=== PATIENT | female | born 1985 | race African-American/Black ===

== ENCOUNTER 2017-01-12 06:21 | Inpatient (IN) ==
--- NOTE | 2017-01-12 07:28 | History and Physical Update ---
History and Physical Update - History and Physical H&P was reviewed, the patient examined and there: are no changes in the patients condition since last H&P was completed. - Dictation Physical: refer to scanned H&P - Physical Exam Mental Status: alert and oriented Heart: regular rate and rhythm Lung: clear to auscultation Abdomen: within normal limits Vitals: within normal limits History and Physical Changes: 39 wks for induction.
[2017-01-12] MEDS: LACTATED RINGERS 1,000 ML IV SCH ×2 (07:30→09:56)
[2017-01-12 07:54] LABS: Eosinophils # 0.1 10*3/uL (0.0-0.87); Eosinophils % 0.6 % (0.00-10.9); Hematocrit 30.7 VOL% (35.7-47.0); Hemoglobin 9.8 GM/DL (12.0-16.0); Immature Granulocytes Absolute 0.08 #; Lymphocytes % 24.5 % (21.3-54.2); Mean Corpuscular HGB Conc 31.9 GM/DL (32-36); Mean Corpuscular Hemoglobin 29 PG (27-34); Mean Platelet Volume 9.6 FL (9.6-12.0); Monocytes # 1.3 10*3/uL (0.11-0.8); Monocytes % 16.4 % (1.7-12.7); Neutrophils # 4.7 10*3/uL (1.4-7.4); Neutrophils % 57.5 % (38.7-73.9); Platelet Count 294 T/CUMM (130-400); Red Blood Count 3.41 MC/CUMM (3.8-5.5); Red Cell Distribution Width 16.7 % (9.3-17.3); White Blood Count 8.2 T/CUMM (4-12)
[2017-01-12 08:19] LABS: Band Neutrophils 1 % (0-10); Hypochromasia Slight; Lymphocytes 24 % (20-55); Polychromasia Slight; Segmented Neutrophils 60 % (50-85); Total Cells Counted 100
[2017-01-12 08:20] LABS: Platelet Estimate Adequate
[2017-01-12] MEDS: MEPERIDINE 50 MG/1 ML VIAL IV PRN ×2 (20:38→23:28)
[2017-01-12] MEDS: ONDANSETRON 4 MG/2 ML VIAL IV PRN (20:38)
[2017-01-12] MEDS ORDERED: ZALEPLON 5 MG CAPSULE PO ONE (22:28)
[2017-01-13] MEDS: LACTATED RINGERS 1,000 ML IV SCH ×3 (00:52→21:45)
[2017-01-13] MEDS: MEPERIDINE 50 MG/1 ML VIAL IV PRN ×4 (02:38→23:41)
[2017-01-13] MEDS: ONDANSETRON 4 MG/2 ML VIAL IV PRN ×2 (02:38→09:20)
[2017-01-13] MEDS: OXYTOCIN/LR 20 UNIT/1,000 ML BAG IV SCH (09:18)
[2017-01-13] MEDS ORDERED: fentaNYL 2 MCG/ROPIV 0.2% EPID 150 ML EPIDURAL SCH (11:23)
[2017-01-13] MEDS ORDERED: ONDANSETRON 4 MG/2 ML VIAL IV ONE (11:23)
[2017-01-13] MEDS ORDERED: diphenhydrAMINE 50 MG/1 ML VIAL IV PRN ×2 (11:23)
[2017-01-13] MEDS ORDERED: CITRIC ACID/SODIUM CITRATE 30 ML UDCUP PO ONE (11:23)
[2017-01-13] MEDS ORDERED: LACTATED RINGERS 1,000 ML IV ONE (11:23)
[2017-01-13] MEDS ORDERED: hydrOXYzine HCL 25 MG/1 ML VIAL IM PRN (11:23)
[2017-01-13] MEDS ORDERED: PROMETHAZINE 25 MG/1 ML VIAL IM ONE ×2 (11:23→19:10)
[2017-01-13] MEDS ORDERED: FAMOTIDINE 20 MG/2 ML VIAL IV ONE (11:23)
[2017-01-13] MEDS ORDERED: ePHEDrine 50 MG/ML AMP IV PRN (11:23)
[2017-01-13] MEDS ORDERED: CITRIC ACID/SODIUM CITRATE 30 ML UDCUP ONE (11:37)
[2017-01-13] MEDS ORDERED: fentaNYL 2 MCG/ROPIV 0.2% EPID 150 ML EPIDURAL ONE (11:37)
[2017-01-13] MEDS ORDERED: METHYLERGONOVINE 0.2 MG/1 ML AMP ONE (13:50)
[2017-01-13 13:51] LABS: Cord Arterial Blood HCO3 16.8 MMOL/L
[2017-01-13] MEDS ORDERED: METHYLERGONOVINE 0.2 MG/1 ML AMP IM ONE (13:53)
[2017-01-13] MEDS ORDERED: miSOPROStol 200 MCG TABLET RECTAL ONE (13:55)
--- NOTE | 2017-01-13 13:59 | EKG Report ---
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
[2017-01-13] MEDS ORDERED: CARBOPROST TROMETHAMINE 250 MCG/ML AMP IM ONE ×2 (14:01→14:04)
[2017-01-13] MEDS ORDERED: CALCIUM CHLORIDE 1,000 MG/10 ML VIAL IV ONE (14:27)
[2017-01-13] MEDS ORDERED: ONDANSETRON 4 MG/2 ML VIAL ONE ×2 (14:27→18:50)
[2017-01-13] MEDS ORDERED: PHENYLEPHRINE 1 MG/10 ML SYRINGE IV ONE (14:27)
[2017-01-13 15:05] LABS: Hematocrit 19.7 VOL% (35.7-47.0); Platelet Count 157 T/CUMM (130-400)
[2017-01-13 15:07] LABS: Hemoglobin 6.4 GM/DL (12.0-16.0)
[2017-01-13 15:26] LABS: ABG Base Excess -6.1 MMOL/L (-2.5-2.5); ABG HCO3 18.2 MMOL/L (20-26); ABG Oxygen Saturation 99.3 % (95-100); ABG PCO2 30.4 MM HG (35-48); ABG PH 7.395 (7.35-7.45); ABG PO2 283.2 MM HG (80-95); ABG TCO2 19.1 MMOL/L (23-27)
[2017-01-13] MEDS ORDERED: SODIUM CHLORIDE 0.9% 250 ML IV PRN (15:47)
[2017-01-13] MEDS ORDERED: GLYCOPYRROLATE 0.4 MG/2 ML VIAL ONE (16:00)
[2017-01-13] MEDS ORDERED: ETOMIDATE 20 MG/10 ML VIAL IV ONE (16:00)
[2017-01-13] MEDS ORDERED: NEOSTIGMINE 10 MG/10 ML VIAL ONE (16:00)
[2017-01-13] MEDS ORDERED: LIDOCAINE 2% 5 ML VIAL ONE (16:00)
[2017-01-13] MEDS ORDERED: CALCIUM GLUCONATE 1,000 MG in SODIUM CHLORIDE 0.9% 100 ML IV ONE (16:00)
[2017-01-13] MEDS ORDERED: SUCCINYLCHOLINE 200 MG/10 ML VIAL ONE (16:00)
[2017-01-13] MEDS ORDERED: ROCURONIUM 100 MG/10 ML VIAL IV ONE (16:00)
[2017-01-13] MEDS ORDERED: CALCIUM GLUCONATE 1,000 MG/10 ML VIAL IV ONE (16:01)
[2017-01-13 16:38] LABS: PT Patient Result 77.8 SECS; Partial Thromboplastin Time 83.5 SECS (0-40)
[2017-01-13 16:39] LABS: D-Dimer >= 35.2 MG/L FEU; Fibrinogen Quant Value < 50 MG% (200-400); INR 6.5
[2017-01-13 17:45] LABS: Hematocrit 26.9 VOL% (35.7-47.0); Hemoglobin 9.2 GM/DL (12.0-16.0)
[2017-01-13] MEDS ORDERED: ONDANSETRON 4 MG/2 ML VIAL IV PRN (18:43)
[2017-01-13] MEDS ORDERED: MEASLES/MUMPS/RUBELLA VACCINE 0.5 ML VIAL SUBCUT ONE (18:43)
[2017-01-13] MEDS ORDERED: ACETAMINOPHEN 325 MG TABLET PO PRN (18:43)
[2017-01-13] MEDS ORDERED: BISACODYL 10 MG SUPP RECTAL PRN (18:43)
[2017-01-13] MEDS ORDERED: BENZOCAINE 20%/MENTHOL 0.5% SPRAY 56 GM CAN TOP PRN (18:43)
[2017-01-13] MEDS ORDERED: HYDROCORTISONE 2.5% RECTAL CREAM 30 GM TUBE TOP PRN (18:43)
[2017-01-13] MEDS ORDERED: oxyCODONE/ACETAMINOPHEN 5-325 MG TABLET PO PRN (18:43)
[2017-01-13] MEDS ORDERED: LANOLIN 50% CREAM 0.3 OZ TUBE TOP PRN (18:43)
[2017-01-13] MEDS ORDERED: WITCH HAZEL PADS 100/JAR TOP PRN (18:43)
[2017-01-13] MEDS ORDERED: IBUPROFEN 400 MG TABLET PO PRN (18:43)
[2017-01-13] MEDS ORDERED: RHO(D) IMMUNE GLOBULIN 300 MCG SYRINGE IM ONE (18:43)
[2017-01-13] MEDS ORDERED: DIPH/TET/ACEL PERT BOOSTER VACCINE 0.5 ML VIAL IM ONE (18:43)
--- NOTE | 2017-01-13 18:54 | Operative Note ---
Date of procedure: 01/13/17 Pre-op diagnosis: 1.s/p ;2.poss AF embolism at delivery;3. uterine bleed Post-op diagnosis: same (+ 4. DIC) Procedure: Examination in OR with uterine currettage and placement of intrauterine baloon tamponade. US at conclusion of placement to assure no collection of blood above baloon. Baloon tamponade placed to gravity drainage with traction applied to catheter to maintain pressure on lower uterine segment. Transfusion of 3 units of pRBCs during the case with suspected 1200 cc blood loss from time of delivery until OR evaluation. Transfer to ICU at conclusion of case Anesthesia: epidural Surgeon / Physician: Elaine Norris Condition: other (guarded) Disposition: ICU Results - Labs CBC & BMP: 01/13/17 17:41 Discharge Plan - Discharge Medications No Action Vit 108/Iron/Folic AC [ One Tablet] 1 tablet PO DAILY Ferrous Sulfate Tab [Feosol Original Tab] 325 mg PO BID - Follow Up or Referral - Forms/Instructions
--- NOTE | 2017-01-13 18:57 | XRay Report ---
XR chest 1V portable Indication: Central line placement. Chest one view: No comparison. Right IJ central line is present, tip at the RA-SVC junction. No pneumothorax seen. Heart size is normal. Mild bibasilar atelectasis noted. Impression: Uncomplicated right IJ central line. Bibasilar atelectasis. PROCEDURE INTERPRETED AT [facility] DEPARTMENT OF RADIOLOGY Final Report Signed by: Salvador Pang M.D.
--- NOTE | 2017-01-13 19:03 | Operative Note ---
Date of procedure: 01/13/17 Pre-op diagnosis: Persistent uterine bleeding despite placement of uterine tamponade Post-op diagnosis: same Procedure: Total abdominal hysterectomy, bilateral salpingectomy Midline vertical incision Gelfoam to space between bladder and anterior vagina Fascia closed with loop PDS [place] to skin Anesthesia: KHADRA Surgeon / Physician: Elaine Norris Estimated blood loss: other (200 cc with this procedure; 2000 cc estimated since delivery) Specimens: other (uterus, cervix, bilateral tubes) Condition: other (guarded) Disposition: ICU Results - Labs CBC & BMP: 01/13/17 17:41 Discharge Plan - Discharge Medications No Action Vit 108/Iron/Folic AC [ One Tablet] 1 tablet PO DAILY Ferrous Sulfate Tab [Feosol Original Tab] 325 mg PO BID - Follow Up or Referral - Forms/Instructions
[2017-01-13] MEDS ORDERED: LACTATED RINGERS 250 ML IV PRN (19:10)
[2017-01-13] MEDS: fentaNYL 2 MCG/ROPIV 0.2% EPID 150 ML EPIDURAL SCH (19:37)
[2017-01-13 21:13] LABS: Basophils % 0.1 % (0.0-0.8); Hematocrit 32.3 VOL% (35.7-47.0); Immature Granulocytes % 0.7 %; Lymphocytes # 1.9 10*3/uL (1.4-4.0); Lymphocytes % 12.1 % (21.3-54.2); Mean Corpuscular HGB Conc 34.1 GM/DL (32-36); Mean Corpuscular Hemoglobin 30 PG (27-34); Mean Corpuscular Volume 88.3 FL (87-102); Mean Platelet Volume 9.8 FL (9.6-12.0); Monocytes # 2.5 10*3/uL (0.11-0.8); Monocytes % 16.2 % (1.7-12.7); NRBC # 0.43 10*3/uL; Neutrophils # 10.8 10*3/uL (1.4-7.4); Neutrophils % 70.9 % (38.7-73.9); Platelet Count 93 T/CUMM (130-400); Red Blood Count 3.66 MC/CUMM (3.8-5.5); Red Cell Distribution Width 16.1 % (9.3-17.3); White Blood Count 15.3 T/CUMM (4-12)
[2017-01-13 21:41] LABS: Albumin 1.8 G/DL (3.4-5.0); Bilirubin,Total 2.1 MG/DL (0.2-1.0); Total Protein 3.7 G/DL (6.4-8.3)
[2017-01-13 21:42] LABS: Osmolality,Calculated 288.6 MOS/KG (273-304); Potassium 3.8 MMOL/L (3.5-5.1)
--- NOTE | 2017-01-13 21:49 | Operative Note ---
Date of procedure: 01/13/17 Pre-op diagnosis: 39 weeks for cytotec induction Post-op diagnosis: same (+ 2. Immediate seizure; 3. uterine atony; 4. Suspected amniotic fluid embolism; 5. Suspected DIC) Procedure: Vacuum assisted ; Immediate seizure; Code was called due to pt's non-responsiveness; uterine atony; Suspected amniotic fluid embolism (upon reflection on the events later); Suspected DIC (upon reflection on the events later) Patient progressed to complete and pushing with labor epidural and Pitocin augmentation and delivered a viable male over intact perineum via Kiwi vacuum assistance due to prolonged bradycardia and ineffective pushing with labor epidural. Kiwi was applied to vertex at +3 station and baby delivered very easily with only 1 light pull of vacuum. Nuchal cord x 2 was easily reduced. Baby was bulb suctioned on the perineum. Cord was doubly clamped and cut. was taken immediately to warmer for stimulation. When I returned to the patient she was having a seizure. We immediately began supportive therapy. O2 was in place. We had difficulty assessing patient's cardiac activity initially as the patient's ECG electrodes had been removed in anticipation for [id number]. Code was called due to patient's non- responsiveness and minimal respiratory activity once seizure activity stopped. Code team along with Dr. Barron and Dr. Harris from the ER, and Dr. Candelario from Hospital Medicine were in the room within 2 minutes. Please see code team write up for events. Pt was being prepared to be moved to ICU for close observation and further evaluation. Once patient was awake and apparently stable we put her back in [facility]. Placenta was delivered intact at 1342. No vaginal or perineal lacerations were noted. Fundus is firm, however pt continued to have more bleeding than was expected despite Pitocin, rectal Cytotec, Methergine and Hemabate. Manual exploration of the uterus revealed no palpable retained products. Attempt to examine the cervix for lacerations and to perform Banjo currettage was without success due to positioning of the patient and inadequate visualization. We placed a Mccloud catheter steriley and atraumatically at 1352 and red urine was noted coming into Mccloud tubing and bag . Estimated blood loss at this point was suspected to be 800 mL. Surgery and anesthesia were notified that we wished to proceed with D&C and possible intrauterine baloon tamponade placement. All these events were discussed with the patient's SO and his aunt. The SO signed consent for surgery and the patient was moved to the OR. Type and cross for pRBCs was ordered. Anesthesia: epidural Surgeon / Physician: Elaine Norris Estimated blood loss: other (~800cc) Specimens: other (placenta to path; cord blood to lab) Condition: critical Disposition: other (surgery) Results - Labs CBC & BMP: 01/13/17 20:55 Discharge Plan - Discharge Medications No Action Vit 108/Iron/Folic AC [ One Tablet] 1 tablet PO DAILY Ferrous Sulfate Tab [Feosol Original Tab] 325 mg PO BID - Follow Up or Referral - Forms/Instructions
[2017-01-13] MEDS: DOCUSATE SODIUM 100 MG CAPSULE PO SCH (21:50)
[2017-01-13 21:51] LABS: Lactic Acid 2.7 MMOL/L (0.4-2.0)
[2017-01-13 23:08] LABS: Band Neutrophils 6 % (0-10); Lymphocytes 26 % (20-55); Metamyelocytes 1 %; Nucleated Red Blood Cells 4 (0-5); Platelet Estimate Decreased; Polychromasia Few; Segmented Neutrophils 65 % (50-85); Total Cells Counted 100
[2017-01-13] MEDS: cefOXitin 1,000 MG in SODIUM CHLORIDE 0.9% 100 ML IV SCH (23:45)
[2017-01-14] MEDS: MEPERIDINE 25 MG/1 ML VIAL IV PRN ×3 (04:00→16:11)
[2017-01-14 04:30] LABS: Basophils % 0.1 % (0.0-0.8); Hematocrit 26.6 VOL% (35.7-47.0); Hemoglobin 9.1 GM/DL (12.0-16.0); Immature Granulocytes % 0.3 %; Immature Granulocytes Absolute 0.05 #; Lymphocytes % 12.8 % (21.3-54.2); Mean Corpuscular HGB Conc 34.2 GM/DL (32-36); Mean Corpuscular Hemoglobin 30 PG (27-34); Mean Corpuscular Volume 86.4 FL (87-102); Mean Platelet Volume 9.9 FL (9.6-12.0); Monocytes # 2.4 10*3/uL (0.11-0.8); Monocytes % 15.5 % (1.7-12.7); NRBC # 0.17 10*3/uL; Neutrophils # 11.1 10*3/uL (1.4-7.4); Neutrophils % 71.3 % (38.7-73.9); Red Blood Count 3.08 MC/CUMM (3.8-5.5); Red Cell Distribution Width 16.1 % (9.3-17.3); White Blood Count 15.5 T/CUMM (4-12)
[2017-01-14 04:31] LABS: Platelet Count 81 T/CUMM (130-400)
[2017-01-14 04:43] LABS: INR 1.2; PT Patient Result 12.7 SECS; Partial Thromboplastin Time 33.3 SECS (0-40)
[2017-01-14 04:51] LABS: D-Dimer 34.7 MG/L FEU
[2017-01-14 05:01] LABS: Albumin 1.6 G/DL (3.4-5.0); Bilirubin,Total 1.2 MG/DL (0.2-1.0); Calcium 7.7 MG/DL (8.5-10.1); Osmolality,Calculated 286.7 MOS/KG (273-304); Potassium 3.6 MMOL/L (3.5-5.1); Total Protein 3.4 G/DL (6.4-8.3)
[2017-01-14 05:16] LABS: Band Neutrophils 4 % (0-10); Burr Cells Slight; Hypochromasia 1+; Lymphocytes 16 % (20-55); Nucleated Red Blood Cells 3 (0-5); Platelet Estimate Decreased; Segmented Neutrophils 72 % (50-85); Total Cells Counted 100
[2017-01-14 05:17] LABS: Ovalocytes Slight; Polychromasia Slight
[2017-01-14] MEDS: LACTATED RINGERS 1,000 ML IV SCH ×5 (06:25→15:07)
[2017-01-14] MEDS ORDERED: SODIUM CHLORIDE 0.9% 250 ML IV PRN (07:29)
[2017-01-14] MEDS: OXYTOCIN/LR 20 UNIT/1,000 ML BAG IV SCH ×2 (08:11→08:21)
[2017-01-14] MEDS: DOCUSATE SODIUM 100 MG CAPSULE PO SCH ×3 (08:38→21:22)
[2017-01-14] MEDS: cefOXitin 1,000 MG in SODIUM CHLORIDE 0.9% 100 ML IV SCH ×2 (08:38→16:23)
[2017-01-14] MEDS ORDERED: POTASSIUM CHLORIDE 20 MEQ TABLET PO ONE (09:22)
[2017-01-14] MEDS ORDERED: PHENOL 1.4% THROAT SPRAY 177 ML BOTTLE PO PRN (10:06)
--- NOTE | 2017-01-14 10:07 | Hospitalist Consult Note ---
Addendum entered and electronically signed by Fernanda Tony MD 01/14/17 09:39: The patient received 7 units of packed red blood cells, 2 units of FFP, 2 units of platelets. Original Note: Assessment and Plan - Time spent with patient Time spent with patient: Greater than 30 minutes (1) Hemorrhagic shock Status: Acute Assessment and plan: This is improved with volume replacement with packed red blood cells, blood products and lactated Ringer's. The patient's definitive therapy was hysterectomy. Current Visit: Yes (2) Status post hysterectomy Status: Acute Assessment and plan: This was done on an emergent basis due to her significant uterine bleeding status post . Current Visit: Yes (3) Status post vaginal delivery Status: Acute Current Visit: Yes (4) DIC (disseminated intravascular coagulation) Status: Acute Assessment and plan: Coagulation studies have improved. Continue to monitor for bleeding. No oozing noted from IV sites. Current Visit: Yes (5) Volume overload Status: Acute Assessment and plan: The patient received several units of blood, blood products, and IV fluids. She is now edematous. I plan to give her some albumin and Lasix to help with diuresis. Current Visit: Yes History of Present Illness - Data of Consult Patient: new to practice Consult date: 01/13/17 Requesting Physician: Elaine Norris - Consult Narrative Reason for consult: hypovolemic shock History of present illness: Ms. Finley is a 31 year old female that is s/p . She had significant blood loss and coded in the L&D room. She had a witnessed seizure but regained consciousness. She did not require intubation or chest compressions. She was tachycardic and hypotensive and continued to have uterine bleeding despite Pitocin. She was taken to the operating room for D&C. I was consulted upon arrival to the intensive care unit where she was found to be anemic, and had a suspected coagulopathy, DIC and was going into hypovolemic shock. The patient was quickly taken to surgery for definitive operative procedure with hysterectomy by her coffee attendant and electric power superintendent. I saw her briefly yesterday throughout the course of this episode in the intensive care unit but a formal consultation was not done due to the inability to properly examine the patient. I am seeing her again this morning. Postoperatively, she has improved dramatically. Her coagulation studies have improved. She remains tachycardic but not hypotensive. She is not receiving any IV pressors. She has a triple-lumen catheter in her neck and an arterial line in her right wrist. She is alert awake and oriented. She does not remember much of the events from yesterday. Operative notes have been reviewed as well as labs. Ms. Finley denies any previous medical history. CC: Elaine Norris, DO - Home Medications and Allergies Home Medications: Home Medications Medication Instructions Recorded Confirmed Type Ferrous Sulfate Tab [Feosol 325 mg PO BID 10/18/16 01/12/17 History Original Tab] Vit 108/Iron/Folic AC 1 tablet PO DAILY 01/01/17 01/12/17 History [ One Tablet] Allergies/Adverse Reactions: Allergies Allergy/AdvReac Type Severity Reaction Status Date / Time No Known Allergies Allergy Verified 01/01/17 11:27 Medical,Surgical,& Family Hx - Medical History Neurology: History of: Migraine No history of: Seizures HEENT: History of: Eye Problem (GLASSES) Hematology: History of: Anemia Reproductive: History of: Abnormal Pap Smear, Ovarian Cysts, Complication (MISCARRIAGE) - Surgical History Reproductive Surgeries: Surgical HX of;: Dilation and Curettage (X1), Hysterectomy - Family History Family History: Reports;: Family Cancer (GRANDMOTHERS), Family Diabetes ( MATERNAL GRANDMOTHER), Family Heart Disease (FATHER) - Social History Smoking Status: Never smoker Frequency of Alcohol Use: None Type of Drug Use: None Functional capacity: independent ambulation 12 point system: reviewed and no additional remarkable complaints except as stated Exam - Constitutional Vitals: Period Temp Pulse Resp BP Sys/Hernandez Pulse Ox Last 24 Hr 96.6 F-99.4 F 111-161 12-28 70-135/41-82 94-100 Exam: Constitutional System: Mild distress. No tremulousness. Head: Normocephalic, atraumatic. Ears, Nose and Throat System: No pain or tenderness. No epistaxis or discharge Eyes System: Pupils equal, round, and reactive. Extraocular muscles intact. Neck: Supple, without adenopathy, No jugular venous distention. Respiratory System: Chest clear to auscultation. Cardiovascular System: Heart with regular rate and rhythm. No murmur. GI System: Abdomen soft. Normo active bowel sounds present. Postop changes noted with appropriate tenderness around the surgical site Musculoskeletal System: limbs with bilateral pedal edema. Full distal pulses. Neurological System: No discernable sensory deficit. No aphasia Psychiatric System: Conversation is rational Results - Labs CBC & BMP: 01/14/17 04:15 01/14/17 04:15 Lab Results: I have reviewed the past 24 hour labs Quality Measures - VTE Contraindication to Pharmacological VTE Prophylaxis: Coagulopathy
[2017-01-14] MEDS: FUROSEMIDE 40 MG/4 ML VIAL IV SCH (11:13)
[2017-01-14] MEDS: ALBUMIN 25% 25 GM in PREMIX 1 EACH IV SCH ×2 (11:17→11:29)
[2017-01-14] MEDS ORDERED: LORazepam 2 MG/1 ML VIAL IV ONE (11:48)
[2017-01-14] MEDS ORDERED: MAGNESIUM SULF RIDER 2 GM in PREMIX 1 EACH IV ONE (14:00)
[2017-01-14] MEDS ORDERED: CALCIUM GLUCONATE 2,000 MG in SODIUM CHLORIDE 0.9% 100 ML IV ONE (14:30)
[2017-01-14] MEDS ORDERED: FUROSEMIDE 40 MG/4 ML VIAL IV ONE (17:21)
[2017-01-14] MEDS: ONDANSETRON 4 MG/2 ML VIAL IV PRN (18:28)
[2017-01-14 18:43] LABS: Basophils % 0.1 % (0.0-0.8); Eosinophils % 0.1 % (0.00-10.9); Hemoglobin 11.2 GM/DL (12.0-16.0); Immature Granulocytes % 0.3 %; Lymphocytes # 1.4 10*3/uL (1.4-4.0); Lymphocytes % 9.6 % (21.3-54.2); Mean Corpuscular Hemoglobin 30 PG (27-34); Mean Platelet Volume 10.9 FL (9.6-12.0); Monocytes # 2.1 10*3/uL (0.11-0.8); Monocytes % 14.4 % (1.7-12.7); Neutrophils # 10.9 10*3/uL (1.4-7.4); Neutrophils % 75.5 % (38.7-73.9); Platelet Count 125 T/CUMM (130-400); Red Blood Count 3.72 MC/CUMM (3.8-5.5); Red Cell Distribution Width 15.4 % (9.3-17.3); White Blood Count 14.5 T/CUMM (4-12)
[2017-01-14 18:44] LABS: Immature Granulocytes Absolute 0.05 #; NRBC # 0.06 10*3/uL
--- NOTE | 2017-01-14 18:49 | ECHO Report ---
TusharCamelia Exam Date: 01/14/2017 08:47 Referring Physician: Technologist: denny Issa ARDMS, RVT Age: 31 Ht (in): 62 Wt (lb): 162 Gender: F Exam Location: [facility], [place] Echo Indications: Atrial fibrillation, Post partem uterine bleeding BP: 102 / 65 HR: 118 Rhythm: Atrial fibrillation Technical Quality: average IMPRESSIONS The patient is in sinus rhythm Preserved ejection fraction of 65Tricuspid regurgitation velocities suggest a RVSP of 36 mmHg plus the right atrial pressure.% or greater with grade 1 diastolic dysfunction and no regional wall motion abnormality. MEASUREMENTS (Male / Female) Normal Values 2D ECHO LV Diastolic Diameter PLAX 4.0 cm 4.2 - 5.9 / 3.9 - 5.3 cm LV Systolic Diameter PLAX 2.6 cm LV Fractional Shortening PLAX 33.6 % IVS Diastolic Thickness 1.0 cm 0.6 - 1.0 / 0.6 - 0.9 cm LVPW Diastolic Thickness 1.0 cm 0.6 - 1.0 / 0.6 - 0.9 cm RV Internal Dim ED PLAX 2.4 cm Aortic Root Diameter 3.2 cm LA Systolic Diameter LX 2.8 cm 3.0 - 4.0 / 2.7 - 3.8 cm DOPPLER TR Peak Velocity 300.0 cm/s TR Peak Gradient 36.0 mmHg FINDINGS Left Ventricle Normal left ventricular cavity size. Mild left ventricular hypertrophy. Left ventricular ejection fraction is estimated at 65 %. There is grade 1 diastolic dysfunction. The left ventricle is hyperdynamic. Right Ventricle The right ventricle is normal in size and function. Right Atrium The right atrium is normal in size. Left Atrium The left atrium is normal in size. Mitral Valve Morphologically normal mitral valve without significant stenosis or prolapse. There is no mitral regurgitation. Aortic Valve Morphologically normal aortic valve without significant sclerosis or stenosis. There is no aortic regurgitation. Tricuspid Valve Morphologically normal tricuspid valve. Trace to mild tricuspid valve regurgitation. Tricuspid regurgitation velocities suggest a RVSP of 36 mmHg plus the right atrial pressure. Pulmonic Valve Morphologically normal pulmonic valve without significant stenosis. There is no pulmonic regurgitation. Pericardium Normal pericardium without effusion. Aorta Normal ascending aorta dimension. Kelsea Valenzuela (Electronically Signed) Final Date: 14 January 2017 18:48
[2017-01-14 19:02] LABS: Band Neutrophils 7 % (0-10); Lymphocytes 12 % (20-55); Metamyelocytes 1 %; Segmented Neutrophils 69 % (50-85); Total Cells Counted 100
[2017-01-14 19:03] LABS: Anisocytosis Slight; Hypochromasia Slight; Platelet Estimate Adequate; Polychromasia Few; Target Cells Few
[2017-01-14 19:04] LABS: Schistocytes Few
[2017-01-14] MEDS: fentaNYL 2 MCG/ROPIV 0.2% EPID 150 ML EPIDURAL SCH (20:58)
[2017-01-14] MEDS: MEPERIDINE 50 MG/1 ML VIAL IV PRN (21:22)
[2017-01-15] MEDS: cefOXitin 1,000 MG in SODIUM CHLORIDE 0.9% 100 ML IV SCH ×3 (00:08→17:03)
[2017-01-15] MEDS: ONDANSETRON 4 MG/2 ML VIAL IV PRN ×2 (00:11→05:43)
[2017-01-15] MEDS: MEPERIDINE 50 MG/1 ML VIAL IV PRN ×3 (02:37→08:25)
[2017-01-15 04:48] LABS: Basophils % 0.1 % (0.0-0.8); Eosinophils % 0.1 % (0.00-10.9); Hematocrit 28.7 VOL% (35.7-47.0); Immature Granulocytes % 0.6 %; Immature Granulocytes Absolute 0.09 #; Lymphocytes # 1.4 10*3/uL (1.4-4.0); Lymphocytes % 8.9 % (21.3-54.2); Mean Corpuscular HGB Conc 34.8 GM/DL (32-36); Mean Corpuscular Hemoglobin 30 PG (27-34); Mean Platelet Volume 10.3 FL (9.6-12.0); Monocytes # 1.9 10*3/uL (0.11-0.8); Monocytes % 11.9 % (1.7-12.7); NRBC # 0.04 10*3/uL; Neutrophils # 12.3 10*3/uL (1.4-7.4); Neutrophils % 78.4 % (38.7-73.9); Platelet Count 105 T/CUMM (130-400); Red Cell Distribution Width 15.7 % (9.3-17.3); White Blood Count 15.7 T/CUMM (4-12)
[2017-01-15 05:15] LABS: Albumin 1.9 G/DL (3.4-5.0); Bilirubin,Total 0.7 MG/DL (0.2-1.0); Calcium 7.9 MG/DL (8.5-10.1); Potassium 3.4 MMOL/L (3.5-5.1); Total Protein 4.3 G/DL (6.4-8.3)
[2017-01-15 07:10] LABS: Hypochromasia 2+; Lymphocytes 8 % (20-55); Microcytosis 2+; Nucleated Red Blood Cells 1 (0-5); Platelet Estimate Decreased; Segmented Neutrophils 82 % (50-85); Total Cells Counted 100
[2017-01-15] MEDS ORDERED: BISACODYL 10 MG SUPP RECTAL ONE (07:25)
[2017-01-15] MEDS ORDERED: POTASSIUM CHLORIDE RIDER 20 MEQ in PREMIX 1 EACH IV ONE (07:30)
[2017-01-15] MEDS ORDERED: METOCLOPRAMIDE 10 MG/2 ML VIAL IV SCH (08:00)
--- NOTE | 2017-01-15 09:01 | OB/GYN Progress Note ---
Assessment and Plan (1) Status post vaginal delivery Status: Acute Current Visit: Yes (2) Status post hysterectomy Status: Acute Current Visit: Yes (3) DIC (disseminated intravascular coagulation) Status: Acute Current Visit: Yes (4) Amniotic fluid embolism in childbirth Status: Acute Current Visit: Yes AUTOMATION CLERK - PN: Subj Interval history: PPD#2 s/p Vacuum assisted delivery with presumed AFE at delivery; POD#2 s/p CHIQUI , Bilateral salpingectomy due to unrelenting uterine bleeding secondary to DIC Pt awake and alert. Having N/V this morning. Not passing flatus. Hypoactive bowel sounds. Will add IV Reglan 10 mg q 8 hours to help with bowel motility. Will also add Dulcolax suppository. VSSAF--pulse now under 100. DIC parameters improving. H/H appears stable now p 9 units pRBCs. Platelets improved. No evidence of bleeding from IV sites now. No vaginal bleeding. Pt is requesting extra IV lines to be removed and Mccloud to be removed. Will maintain right IJ IV access. Anesthesia to see pt today to see about removing epidural. Dr. Joseph stated he would see her this morning. Plan to move pt to floor today. Exam AUTOMATION CLERK - Constitutional Vitals: Vital Signs Temp Pulse Pulse Resp BP BP Pulse Ox 01/15/17 07:00 77 19 120/73 01/15/17 06:29 97.5 F L 86 20 120/75 01/15/17 06:00 93 H 18 118/75 01/15/17 05:00 102 H 19 116/75 01/15/17 04:00 97.5 F L 110 H 15 117/77 01/15/17 03:00 113 H 19 109/77 01/15/17 02:00 109 H 20 120/73 01/15/17 01:00 113 H 19 117/68 01/15/17 00:00 97.9 F 112 H 18 119/73 01/14/17 23:00 114 H 21 101/67 01/14/17 22:00 119 H 16 101/67 01/14/17 21:00 125 H 20 116/71 01/14/17 20:00 98.9 F 123 H 22 123/70 01/14/17 19:00 125 H 19 123/72 01/14/17 18:00 124 H 21 122/68 01/14/17 17:00 127 H 19 117/71 01/14/17 16:41 98.2 F 129 H 21 111/70 93 L 01/14/17 16:00 98.8 F 131 H 24 117/67 01/14/17 15:44 99.2 F 132 H 23 122/71 96 01/14/17 15:11 98.8 F 130 H 19 107/65 95 01/14/17 15:08 99.4 F 131 H 21 106/64 95 01/14/17 15:01 98.6 F 132 H 20 110/67 96 01/14/17 15:00 130 H 18 106/64 01/14/17 14:53 98.7 F 130 H 19 108/65 96 01/14/17 14:00 130 H 19 106/63 01/14/17 13:37 97.5 F L 131 H 24 106/64 100 01/14/17 13:02 98.1 F 133 H 20 95/61 96 01/14/17 13:00 133 H 20 96/60 01/14/17 12:56 98.2 F 132 H 19 98/60 97 01/14/17 12:51 98.3 F 135 H 18 96/60 97 01/14/17 12:43 98.0 F 133 H 19 97/62 97 01/14/17 12:00 98.2 F 132 H 24 108/64 01/14/17 11:27 97.8 F 125 H 23 115/66 97 01/14/17 11:00 122 H 18 114/64 01/14/17 10:57 98.4 F 119 H 19 113/65 95 01/14/17 10:52 98.4 F 122 H 20 118/67 96 01/14/17 10:47 98.6 F 117 H 19 111/63 97 01/14/17 10:37 98.3 F 116 H 17 111/65 17 L 01/14/17 10:36 98.3 F 116 H 17 111/65 98 01/14/17 10:20 98.4 F 121 H 18 107/63 97 01/14/17 10:00 122 H 23 112/61 01/14/17 09:50 98.0 F 117 H 18 108/65 97 01/14/17 09:45 98.3 F 121 H 20 107/64 98 01/14/17 09:40 97.9 F 121 H 24 110/65 98 01/14/17 09:28 98.2 F 117 H 22 108/63 99 01/14/17 09:00 122 H 25 H 104/65 Pulse Ox Pulse Ox 01/15/17 07:00 99 01/15/17 06:29 100 01/15/17 06:00 98 01/15/17 05:00 98 01/15/17 04:00 95 01/15/17 03:00 93 L 01/15/17 02:00 99 01/15/17 01:00 96 01/15/17 00:00 96 01/14/17 23:00 97 01/14/17 22:00 96 01/14/17 21:00 95 01/14/17 20:00 96 01/14/17 19:00 95 01/14/17 18:00 93 L 01/14/17 17:00 94 L 01/14/17 16:41 01/14/17 16:00 97 01/14/17 15:44 01/14/17 15:11 01/14/17 15:08 01/14/17 15:01 01/14/17 15:00 96 01/14/17 14:53 01/14/17 14:00 97 01/14/17 13:37 01/14/17 13:02 01/14/17 13:00 96 01/14/17 12:56 01/14/17 12:51 01/14/17 12:43 01/14/17 12:00 98 01/14/17 11:27 01/14/17 11:00 98 01/14/17 10:57 01/14/17 10:52 01/14/17 10:47 01/14/17 10:37 01/14/17 10:36 01/14/17 10:20 01/14/17 10:00 97 01/14/17 09:50 01/14/17 09:45 01/14/17 09:40 01/14/17 09:28 01/14/17 09:00 98 General appearance: normal weight, no acute distress - Head Head exam: Present: normal inspection, normocephalic - Eye Eye exam: Present: EOMI - GI/Abdominal GI/Abdominal exam: Present: distended, hypoactive bowel sounds, soft, other ( incision intact without E/I/D) - Extremities Exam Extremities exam: Present: normal inspection - Neurological Exam Neurological exam: Present: alert, oriented X3 - Psychiatric Psychiatric exam: Present: normal affect, normal mood - Skin Skin exam: Present: normal color, warm Results - Labs CBC & BMP: 01/15/17 04:30 01/15/17 04:30 Lab Results: I have reviewed the past 24 hour labs
--- NOTE | 2017-01-15 09:41 | Anesthesia Post-Op ---
Anesthesia Post OP - Post Ansesthetic Evaluation Patient seen in post op: Yes Resp: within normal limits CV: within normal limits Mental: within normal limits Temp: within normal limits Eula-Uc-[place]: within normal limits Nausea and Vomiting: within normal limits Pain: within normal limits Other:: epidural cath discontinued tip intact with no bleeding evident. site cleaned and band-aid placed over site.
[2017-01-15] MEDS: DOCUSATE SODIUM 100 MG CAPSULE PO SCH ×2 (09:52→22:22)
[2017-01-15] MEDS: METOCLOPRAMIDE 10 MG/2 ML VIAL IV SCH ×3 (09:52→22:10)
[2017-01-15] MEDS: FUROSEMIDE 40 MG/4 ML VIAL IV SCH (09:52)
--- NOTE | 2017-01-15 10:06 | Hospitalist Progress Note ---
Assessment and Plan (1) Hemorrhagic shock Status: Resolved Assessment and plan: This has resolved Current Visit: Yes (2) Status post hysterectomy Status: Acute Assessment and plan: This was done on an emergent basis due to her significant uterine bleeding status post . Current Visit: Yes (3) Status post vaginal delivery Status: Acute Current Visit: Yes (4) DIC (disseminated intravascular coagulation) Status: Resolved Assessment and plan: Coagulation studies have improved. Continue to monitor for bleeding. No oozing noted from IV sites. Current Visit: Yes (5) Volume overload Status: Acute Assessment and plan: The patient received several units of blood, blood products, and IV fluids. She is now edematous. She is improving with IV Lasix Current Visit: Yes (6) Hypokalemia Status: Acute Assessment and plan: Oral replacement ordered Current Visit: Yes Hospitalist: Subjective Interval history: Patient seen and examined. No acute events overnight. Case discussed with nursing staff. Labs reviewed. Heart rate has improved overnight. She responded well to IV Lasix pre-and post transfusion. She still has some abdominal cramping. The wound is clean dry and intact. Plans to transfer her to the floor today noted. Coagulation studies are much improved. Exam - Constitutional Vitals: Period Temp Pulse Resp BP Sys/Hernandez Pulse Ox Last 24 Hr 97.5 F-99.4 F 77-135 15-24 95-123/60-77 17-100 Exam: Constitutional System: No distress. No tremulousness. Head: Normocephalic, atraumatic. Ears, Nose and Throat System: No pain or tenderness. No epistaxis or discharge Eyes System: Pupils equal, round, and reactive. Extraocular muscles intact. Neck: Supple, without adenopathy, No jugular venous distention. Respiratory System: Chest clear to auscultation. Cardiovascular System: Heart with regular rate and rhythm. No murmur. GI System: Abdomen soft. Hypoactive bowel sounds present. Postop changes noted with appropriate tenderness around the surgical site Musculoskeletal System: limbs with bilateral pedal edema. Full distal pulses. Neurological System: No discernable sensory deficit. No aphasia Psychiatric System: Conversation is rational Results - Labs CBC & BMP: 01/15/17 04:30 01/15/17 04:30 Lab Results: I have reviewed the past 24 hour labs Quality Measures - VTE Contraindication to Pharmacological VTE Prophylaxis: Coagulopathy
[2017-01-15] MEDS: LACTATED RINGERS 1,000 ML IV SCH (12:20)
[2017-01-15] MEDS: oxyCODONE/ACETAMINOPHEN 5-325 MG TABLET PO PRN ×2 (12:22→22:28)
--- NOTE | 2017-01-15 18:16 | Pathology Report from [facility] ---
[facility] – [place] ACCESSION # : [id number] PATIENT NAME : Joan Finley ORDERING DR : GIANLUCA WINSTON CLINICAL HX: Code (maternal) after delivery POST-OP DX: Same SPECIMEN INFO: #1 Placenta #2 Uterus #3 Cervix #4 Posterior cervix #5 RT fallopian tube #6 LT fallopian tube #7 Uterine contents GROSS DESCRIPTION: #1 PLACENTA consists of a 679 gram placenta which measures 23.0 x 18.0 x 3.0 cm. membranes are reyes, translucent. The umbilical cord measures 26.0 cm, contains three vessels and is centrally inserted. The surface is blue-farr and intact. The maternal surface displays intact red -farr cotyledons with no abnormalities grossly appreciated upon sectioning. Sections submitted: 1A membranes and cord, 1B and maternal surfaces.#2 UTERUS consists of a 778 gram uterus without a cervix which measures 15.5 x 12.5 x 8.3 cm. The serosa is red-reyes and free of adhesions. The endometrium is shaggy and hemorrhagic. Sectioning reveals no gross abnormalities. Creasing And Cutting Press Feeder endomyometrium submitted in cassettes 2A and 2B.# 3 CERVIX consists of a markedly hemorrhagic cervix measuring 9.0 x 5.0 x 4.0 cm. The cervical os measures 4.0 cm. The endocervical canal is reyes, hemorrhagic patent. Creasing [employer] Cutting Press Feeder sections submitted in cassette 3A, Additional sections of cervix from each quadrant in cassettes 3B-3H. NOTE: The cervix was not oriented.#4 POSTERIOR CERVIX consists of a fragment of shaggy hemorrhagic tissue measuring 5.2 x 4.5 x 1.3 cm. A guest experience representative section submitted in cassette #4. Additional sections submitted 4B-4F are remainder of posterior cervix.#5 RT FALLOPIAN TUBE consists of a hemorrhagic fimbriated fallopian tube segment measuring 8.0 x 2.9 cm. Creasing And Cutting Press Feeder sections submitted in cassette #5.#6 LT FALLOPIAN TUBE consists of a fimbriated fallopian tube segment measuring 6.0 x 0.6 cm. Creasing And Cutting Press Feeder sections submitted in cassette #6.#7 UTERINE CONTENTS consists of a 2.5 x 1.3 cm aggregate of hemorrhagic tissue. Submitted in cassette #7. DIAGNOSIS FOR JOAN FINLEY: #1 PLACENTA, MEMBRANES, UMBILICAL CORD: Focal placental infarction with dystrophic calcification, attached blood. Tri-vessel umbilical cord with acute hemorrhage. 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 COLLECTED DATE: 01/14/2017 [facility] REPORT DATE: 01/15/2017 ELECTRONICALLY SIGNED BY: Kriss Paredes M.D. 01/15/2017 - 12:53:47 MTDHarini
[2017-01-15] MEDS: BISACODYL 10 MG SUPP RECTAL SCH (22:17)
[2017-01-16] MEDS: cefOXitin 1,000 MG in SODIUM CHLORIDE 0.9% 100 ML IV SCH ×3 (00:10→16:00)
[2017-01-16 05:59] LABS: Basophils % 0.1 % (0.0-0.8); Eosinophils % 0.1 % (0.00-10.9); Hematocrit 27.2 VOL% (35.7-47.0); Hemoglobin 9.5 GM/DL (12.0-16.0); Immature Granulocytes % 1.4 %; Immature Granulocytes Absolute 0.27 #; Lymphocytes # 1.6 10*3/uL (1.4-4.0); Lymphocytes % 8.6 % (21.3-54.2); Mean Corpuscular HGB Conc 34.9 GM/DL (32-36); Mean Corpuscular Hemoglobin 30 PG (27-34); Mean Corpuscular Volume 86.9 FL (87-102); Monocytes # 2.2 10*3/uL (0.11-0.8); Monocytes % 11.7 % (1.7-12.7); NRBC # 0.13 10*3/uL; Neutrophils # 14.7 10*3/uL (1.4-7.4); Neutrophils % 78.1 % (38.7-73.9); Platelet Count 123 T/CUMM (130-400); Red Blood Count 3.13 MC/CUMM (3.8-5.5); Red Cell Distribution Width 15.5 % (9.3-17.3); White Blood Count 18.9 T/CUMM (4-12)
[2017-01-16] MEDS: METOCLOPRAMIDE 10 MG/2 ML VIAL IV SCH ×3 (06:00→21:30)
[2017-01-16 06:16] LABS: Albumin 1.8 G/DL (3.4-5.0); Calcium 7.6 MG/DL (8.5-10.1); Osmolality,Calculated 279.3 MOS/KG (273-304); Potassium 2.9 MMOL/L (3.5-5.1); Total Protein 4.2 G/DL (6.4-8.3)
[2017-01-16] MEDS ORDERED: POTASSIUM CHLORIDE 20 MEQ TABLET PO SCH (09:00)
[2017-01-16] MEDS: SIMETHICONE CHEW 80 MG TABLET PO PRN ×2 (09:30→21:30)
[2017-01-16] MEDS: MAGNESIUM HYDROXIDE SUSP 30 ML UDCUP PO SCH ×4 (09:30→21:30)
[2017-01-16] MEDS: DOCUSATE SODIUM 100 MG CAPSULE PO SCH ×2 (09:30→21:30)
[2017-01-16] MEDS: BISACODYL 10 MG SUPP RECTAL SCH ×2 (10:03→21:48)
--- NOTE | 2017-01-16 10:27 | Hospitalist Progress Note ---
Assessment and Plan (1) Status post vaginal delivery Status: Acute Assessment and plan: Complicated uterine hemorrhage requiring hysterectomy urgently. Hypovolemic shock with coagulopathy and post resuscitation volume expansion. Current Visit: Yes Hospitalist: Subjective Interval history: 31-year-old female who developed severe uterine bleeding following delivery complicated by hypovolemic shock and coagulopathy. Urgent hysterectomy had been performed. She is received Lasix and developed hypokalemia with. Her vital signs been stable she is afebrile and hemoglobin is stable. Exam - Constitutional Vitals: Period Temp Pulse Resp BP Sys/Hernandez Pulse Ox Last 24 Hr 98.1 F-99.8 F 81-104 18-20 106-127/64-91 94-99 General appearance: normal weight - Respiratory Respiratory exam: Present: clear to auscultation bilaterally - Cardiovascular Cardiovascular exam: Present: regular rate and rhythm - GI/Abdominal GI/Abdominal exam: Present: normal bowel sounds - Extremities Exam Extremities exam: Absent: edema - Neurological Exam Neurological exam: Present: alert, oriented X3 Results - Labs CBC & BMP: 01/16/17 05:22 01/16/17 05:22 Labs: Albumin 1.8 Quality Measures - VTE Contraindication to Pharmacological VTE Prophylaxis: Coagulopathy
[2017-01-16] MEDS: POTASSIUM CHLORIDE 20 MEQ TABLET PO SCH ×3 (10:30→18:30)
--- NOTE | 2017-01-16 10:38 | OB/GYN Progress Note ---
Assessment and Plan - Time spent with patient Time spent with patient: Less than 30 minutes (1) S/P abdominal hysterectomy Status: Acute Assessment and plan: Continue Dulcolax suppository. Continue Clear Liquid diet until BM. Increase ambulation. Dr Norris aware of pt status. Dr Torresever to see pt tomorrow. Current Visit: Yes SLEDGER - PN: Subj Interval history: Sitting up on side of bed this am. Reports pain is tolerable at this time. Denies BM and passing minimal amount of gas. Reports infant doing well, bottlefeeding. Exam SLEDGER - Constitutional Vitals: Vital Signs Temp Pulse Pulse Resp BP BP Pulse Ox 01/16/17 08:00 101 H 20 01/16/17 04:00 98.1 F 104 H 18 120/66 95 01/16/17 00:00 98.1 F 101 H 18 126/64 94 L 01/15/17 20:00 99.8 F H 103 H 18 119/76 99 01/15/17 16:00 98.9 F 87 20 106/68 96 01/15/17 12:23 81 18 01/15/17 12:10 98.1 F 81 18 127/82 96 01/15/17 11:00 84 19 125/91 98 General appearance: normal weight, no acute distress - Respiratory Respiratory exam: Present: clear to auscultation bilaterally - Cardiovascular Cardiovascular exam: Present: regular rate and rhythm - GI/Abdominal GI/Abdominal exam: Present: distended, hypoactive bowel sounds, other (Abd Incision Well-approx with no s/s infection) - Extremities Exam Extremities exam: Present: normal inspection - Neurological Exam Neurological exam: Present: alert, oriented X3 - Psychiatric Psychiatric exam: Present: normal affect, normal mood - Skin Skin exam: Present: normal color, warm, dry Results - Labs CBC & BMP: 01/16/17 05:22 01/16/17 05:22 Lab Results: I have reviewed the past 24 hour labs
[2017-01-16] MEDS: oxyCODONE/ACETAMINOPHEN 5-325 MG TABLET PO PRN ×2 (11:17→17:28)
[2017-01-16] MEDS ORDERED: IBUPROFEN 800 MG TABLET ONE ×2 (15:28→17:24)
[2017-01-16] MEDS: FERROUS SULFATE 325 MG TABLET PO SCH (21:30)
[2017-01-16] MEDS ORDERED: POTASSIUM CHLORIDE 10 MEQ TABLET PO SCH (22:00)
[2017-01-17] MEDS: cefOXitin 1,000 MG in SODIUM CHLORIDE 0.9% 100 ML IV SCH ×4 (00:15→23:29)
[2017-01-17] MEDS: MAGNESIUM HYDROXIDE SUSP 30 ML UDCUP PO SCH ×6 (02:18→22:12)
[2017-01-17 03:47] LABS: Basophils % 0.1 % (0.0-0.8); Eosinophils # 0.1 10*3/uL (0.0-0.87); Eosinophils % 0.3 % (0.00-10.9); Hematocrit 27.4 VOL% (35.7-47.0); Hemoglobin 9.3 GM/DL (12.0-16.0); Immature Granulocytes % 0.7 %; Immature Granulocytes Absolute 0.13 #; Lymphocytes # 1.4 10*3/uL (1.4-4.0); Mean Corpuscular HGB Conc 33.9 GM/DL (32-36); Mean Corpuscular Hemoglobin 30 PG (27-34); Mean Corpuscular Volume 88.4 FL (87-102); Mean Platelet Volume 10.3 FL (9.6-12.0); Monocytes # 2.2 10*3/uL (0.11-0.8); Monocytes % 10.9 % (1.7-12.7); NRBC # 0.12 10*3/uL; Platelet Count 152 T/CUMM (130-400); Red Cell Distribution Width 15.3 % (9.3-17.3); White Blood Count 19.8 T/CUMM (4-12)
[2017-01-17 04:14] LABS: Albumin 1.9 G/DL (3.4-5.0); Bilirubin,Total 0.7 MG/DL (0.2-1.0); Calcium 7.9 MG/DL (8.5-10.1); Potassium 3.7 MMOL/L (3.5-5.1); Total Protein 4.5 G/DL (6.4-8.3)
[2017-01-17] MEDS: SIMETHICONE CHEW 80 MG TABLET PO PRN ×2 (05:03→12:42)
[2017-01-17] MEDS: METOCLOPRAMIDE 10 MG/2 ML VIAL IV SCH ×3 (05:30→22:00)
--- NOTE | 2017-01-17 07:08 | Hospitalist Progress Note ---
Assessment and Plan - Time spent with patient Time spent with patient: Less than 30 minutes (1) Status post hysterectomy Status: Acute Assessment and plan: Patient had vaginal delivery complicated by uterine hemorrhage requiring emergent hysterectomy with subsequent hypovolemic shock and acute coagulopathy which have both resolved. She was mildly hypokalemic and this is been corrected. I have nothing further to add at this time. Will sign off her case but please do not hesitate to call if there are any other issues that need to be resolved. Thank you for allowing us to participate in her care. Current Visit: Yes Hospitalist: Subjective Interval history: Patient has been examined and chart reviewed. 31-year-old -[place] female who had a vaginal delivery complicated by uterine hemorrhage requiring emergent hysterectomy. At that time she developed hypovolemic shock and coagulopathy which is now all improved. She is sitting up in a chair in the room and has no complaints of fever, chills, chest pain, shortness of breath, abdominal pain, nausea, vomiting. She has yet to have a bowel movement. She is tolerating her diet. She was mildly hypokalemic yesterday and this is been replaced and corrected. Exam - Constitutional Vitals: Period Temp Pulse Resp BP Sys/Hernandez Pulse Ox Last 24 Hr 97.2 F-98.8 F 100-106 18-20 118-128/68-81 94-99 General appearance: no acute distress - Head Head exam: Present: normocephalic, atraumatic - Eye Eye exam: Present: EOMI Pupils: Present: ADELFO - ENT ENT exam: Present: normal oropharynx - Neck Neck exam: Present: normal inspection. Absent: tenderness - Respiratory Respiratory exam: Present: clear to auscultation bilaterally. Absent: rales, rhonchi, wheezes - Cardiovascular Cardiovascular exam: Present: regular rate and rhythm. Absent: systolic murmur , tachycardia - GI/Abdominal GI/Abdominal exam: Present: normal bowel sounds, soft. Absent: tenderness, rebound - Extremities Exam Extremities exam: Absent: calf tenderness, edema - Neurological Exam Neurological exam: Present: alert, oriented X3, CN II-XII intact. Absent: motor sensory deficit - Psychiatric Psychiatric exam: Present: normal affect, normal mood. Absent: agitated, anxious - Skin Skin exam: Present: warm, dry. Absent: petechiae, rash Results - Labs CBC & BMP: 01/17/17 03:31 01/17/17 03:31 Lab Results: I have reviewed the past 24 hour labs Quality Measures - VTE Contraindication to Pharmacological VTE Prophylaxis: Coagulopathy Specialty Discharge - Follow Up or Referrals Follow up with: Elaine Norris DO [Physician] -
[2017-01-17] MEDS: DOCUSATE SODIUM 100 MG CAPSULE PO SCH ×2 (08:10→22:05)
[2017-01-17] MEDS: FERROUS SULFATE 325 MG TABLET PO SCH ×2 (08:10→22:11)
[2017-01-17] MEDS: BISACODYL 10 MG SUPP RECTAL SCH ×2 (08:12→15:00)
--- NOTE | 2017-01-17 10:32 | OB/GYN Progress Note ---
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 She is resting comfortably in the bed and tolerating her diet. She reported that her potassium was 3.7. Patient is having this and her other medical problems managed by hospital medicine. Patient's incision is dry and intact she has good bowel sounds Assessment #1 patient doing better clinically Plan continue present management Exam OIL BURNER SERVICER AND INSTALLER - Constitutional Vitals: Vital Signs Temp Pulse Pulse Resp BP BP Pulse Ox 01/17/17 09:47 20 01/17/17 08:00 99.0 F 81 18 121/74 99 01/17/17 04:00 97.2 F L 102 H 20 124/72 95 01/17/17 00:00 97.4 F L 100 H 20 128/76 95 01/16/17 19:30 98.5 F 100 H 20 123/81 94 L 01/16/17 17:42 18 01/16/17 15:58 98.8 F 106 H 18 127/76 99 01/16/17 15:49 18 01/16/17 14:00 20 01/16/17 12:00 97.8 F 102 H 20 120/79 96 Results - Labs CBC & BMP: 01/17/17 03:31 01/17/17 03:31
[2017-01-17] MEDS: oxyCODONE/ACETAMINOPHEN 5-325 MG TABLET PO PRN (17:30)
[2017-01-17] MEDS ORDERED: IBUPROFEN 800 MG TABLET ONE (17:30)
[2017-01-18] MEDS: MAGNESIUM HYDROXIDE SUSP 30 ML UDCUP PO SCH ×4 (00:38→21:48)
[2017-01-18] MEDS: BISACODYL 10 MG SUPP RECTAL SCH ×2 (01:56→21:51)
[2017-01-18] MEDS: IBUPROFEN 800 MG TABLET PO PRN ×2 (01:57→15:39)
[2017-01-18] MEDS: METOCLOPRAMIDE 10 MG/2 ML VIAL IV SCH ×3 (06:00→21:48)
[2017-01-18] MEDS: cefOXitin 1,000 MG in SODIUM CHLORIDE 0.9% 100 ML IV SCH ×3 (08:00→23:30)
[2017-01-18] MEDS: FERROUS SULFATE 325 MG TABLET PO SCH ×2 (08:28→21:47)
[2017-01-18] MEDS: SIMETHICONE CHEW 80 MG TABLET PO PRN (09:29)
[2017-01-18] MEDS: DOCUSATE SODIUM 100 MG CAPSULE PO SCH ×2 (09:29→21:51)
--- NOTE | 2017-01-18 09:56 | OB/GYN Progress Note ---
SENIOR GOVERNMENT PROGRAM ANALYST - PN: Subj Interval history: Interval on-call note Patient doing well today she is up about the [place] walking without complaint. Hospital medicine was seen in this morning and signed off. Will continue present management Dr. Norris will evaluate in the morning with probable discharge Exam SENIOR GOVERNMENT PROGRAM ANALYST - Constitutional Vitals: Vital Signs Temp Pulse Resp BP BP Pulse Ox 01/18/17 09:38 18 01/18/17 08:00 98.0 F 109 H 18 116/78 96 01/18/17 07:40 18 01/18/17 04:00 98 F 103 H 20 121/77 95 01/17/17 23:32 98 F 104 H 20 120/79 95 01/17/17 19:30 98.9 F 108 H 20 114/69 95 01/17/17 18:00 20 01/17/17 15:25 98.2 F 105 H 18 113/71 96 01/17/17 15:24 18 01/17/17 13:49 20 01/17/17 11:45 98.5 F 109 H 23 127/76 97 01/17/17 11:35 23 Results - Labs CBC & BMP: 01/17/17 03:31 01/17/17 03:31
[2017-01-18] MEDS: oxyCODONE/ACETAMINOPHEN 5-325 MG TABLET PO PRN (15:00)
[2017-01-19] MEDS: oxyCODONE/ACETAMINOPHEN 5-325 MG TABLET PO PRN (02:57)
[2017-01-19 07:25] VITALS: BP 123/85
[2017-01-19] MEDS: MAGNESIUM HYDROXIDE SUSP 30 ML UDCUP PO SCH (08:58)
[2017-01-19] MEDS: cefOXitin 1,000 MG in SODIUM CHLORIDE 0.9% 100 ML IV SCH (08:58)
[2017-01-19] MEDS: DOCUSATE SODIUM 100 MG CAPSULE PO SCH (08:58)
[2017-01-19] MEDS: FERROUS SULFATE 325 MG TABLET PO SCH (08:58)
[2017-01-19] MEDS: IBUPROFEN 800 MG TABLET PO PRN (09:00)
[2017-01-19] MEDS: BISACODYL 10 MG SUPP RECTAL SCH (10:08)
--- NOTE | 2017-01-19 10:57 | Discharge Summary ---
Hospital Course - Hospital Course Hospital Course: Pt admitted for induction at 39 wks. She underwent cytotec induction followed by Pitocin the following day. Just after delivery patient had seizure and became hypoxic, code was called, pt was resuscitated. After this pt was placed in dorsolithotomy position again for delivery of the placenta. Pt had more bleeding than expected, appropriate measures were performed but pt continued to have persistent bleeding. Mccloud catheter was replaced with bloody urine noted. Pt was moved to OR for evaluation of persistent uterine bleeding. D&C was performed, no cervical lacerations were noted, Balloon Tamponade was placed which seemed to slow bleeding a bit so we moved her to ICU but it became obvious fairly quickly that her bleeding was not stopping so we moved her back to OR for hysterectomy. Transfusion with pRBCs and fresh frozen plasma was started during the initial OR visit due to clinical evidence of DIC. Pt tolerated hysterectomy well and was transferred back to ICU where her condition gradually continued to improve. She ultimately received 9 units pRBCs , 3 units FFP, and 3 units of platelets. Hospital medicine managed pt medically while she was in the ICU. Hypokalemia was managed and is stable at time of discharge. Pt is ambulating well. Pain is tolerated with minimal need for oral pain meds. She has had a BM. Incision is healing well without E/I/D. Diagnosis - Discharge Diagnosis (1) Status post vaginal delivery Status: Acute (2) Status post hysterectomy Status: Acute (3) DIC (disseminated intravascular coagulation) Status: Resolved (4) Amniotic fluid embolism in childbirth Status: Acute Specialty Discharge - Follow Up or Referrals Follow up with: Elaine Norris DO [Physician] - Discharge Plan - Discharge Data Condition at Discharge: Stable Discharge Diet: regular diet Activity: other (pelvic rest x 6 wks) Hygiene: may shower Weight Bearing at Discharge: full weight bearing Driving: no restrictions (if not taking narcotics) Contact your physician if you experience:: fever over 101, Difficulty voiding, Redness or swelling, Nausea/Vomiting, Shortness of breath, Bleeding, pain uncontrolled by pain medications - Discharge Medications New Ibuprofen Tab [Motrin Tab] 800 mg PO Q6H PRN #30 tablet PRN Reason: Pain Moderate (4-7) oxyCODONE/ACETAMINOPHEN 5-325 [Percocet 5-325] 1 tablet PO Q6H PRN #20 tablet PRN Reason: Pain Severe (8-10) No Action Vit 108/Iron/Folic AC [ One Tablet] 1 tablet PO DAILY Ferrous Sulfate Tab [Feosol Original Tab] 325 mg PO BID - Follow Up or Referral Follow Up: Elaine Norris DO [Physician] - (Thursday 2pm) - Forms/Instructions Instructions: Section (DC), Depression (GEN), Surgical Site Infections (GEN), Wound Healing and Your Diet (DC), Bleeding (DC ) Exam - Constitutional Vitals: Period Temp Pulse Resp BP Sys/Hernandez Pulse Ox Last 24 Hr 97 F-101.0 F 20-102 18-20 113-123/74-85 96-99 General appearance: normal weight, no acute distress - Head Head exam: Present: normal inspection, normocephalic - Eye Eye exam: Present: EOMI - Respiratory Respiratory exam: Present: clear to auscultation bilaterally - Cardiovascular Cardiovascular exam: Present: regular rate and rhythm - GI/Abdominal GI/Abdominal exam: Present: soft (Incision intact without E/I/D) - Extremities Exam Extremities exam: Present: normal inspection - Neurological Exam Neurological exam: Present: alert, oriented X3 - Psychiatric Psychiatric exam: Present: normal affect, normal mood - Skin Skin exam: Present: normal color, warm Discharge Results Procedures and tests throughout hospitalization: Pending Orders 01/12/17 07:39 Fresh Frozen Plasma Stat Single Donor Platelets Stat 01/13/17 14:02 Red Blood Cells Leuko Red Stat 01/19/17 10:35 CBC [Comp Blood Count Auto Diff] Stat DS: Provider Date of admission: 01/12/17 06:21 Primary care physician: . No PCP Attending physician on admission: Elaine Norris DO Consults: 01/13/17 15:40 Consult to Physician [CONS] Routine Comment: Consulting Provider: Consult to Specialist Group: Hospitalist When should Consulting Provider be notified: Now 01/13/17 18:43 Consult to Osteologist [CONS] Routine Consult Osteologist: Breast Feeding 01/13/17 18:47 Consult to Physician [CONS] Routine Comment: Consulting Provider: Fernanda Tony When should Consulting Provider be notified: Now Discharging clinician: Elaine Norris DO Expected date of discharge: 01/19/17
[2017-01-19 11:04] LABS: Basophils % 0.1 % (0.0-0.8); Eosinophils # 0.1 10*3/uL (0.0-0.87); Eosinophils % 1.2 % (0.00-10.9); Hemoglobin 8.6 GM/DL (12.0-16.0); Immature Granulocytes % 2.2 %; Immature Granulocytes Absolute 0.26 #; Lymphocytes # 1.3 10*3/uL (1.4-4.0); Mean Corpuscular HGB Conc 33.1 GM/DL (32-36); Mean Corpuscular Hemoglobin 30 PG (27-34); Mean Corpuscular Volume 90.6 FL (87-102); Mean Platelet Volume 10.2 FL (9.6-12.0); Monocytes # 1.5 10*3/uL (0.11-0.8); Monocytes % 13.2 % (1.7-12.7); NRBC # 0.09 10*3/uL; Neutrophils # 8.4 10*3/uL (1.4-7.4); Neutrophils % 72.3 % (38.7-73.9); Platelet Count 320 T/CUMM (130-400); Red Blood Count 2.87 MC/CUMM (3.8-5.5); White Blood Count 11.6 T/CUMM (4-12)
== END 2017-01-19 14:25 | disposition home or self-care (01) | DRG 767 ==
LOC: N.LD 06:21 → N.ICU 01-13 13:39 → N.OB 01-15 12:06
PROVIDERS: ADMIT Obstetrics & Gynecology; ATTEND Obstetrics & Gynecology